=== PATIENT | male | born 1980 | race Caucasian/White ===

== ENCOUNTER 2017-06-06 21:21 | Emergency (ER) | payer MEDICAID ==
[2017-06-07] MEDS ORDERED: Acyclovir* 200 MG CAP PO ONE (00:47)
--- NOTE | 2017-06-07 00:51 | ED ---
Skin Complaint - HPI Summary HPI Summary: 37F presents with back pain for 6 days and rash for a day and a half. burning time pain where rash came. on left side back is rash. He did have chicken pox when he was younger. He denies any drainge from the rash. He denies any fevers. the rash has spread to his chest. He states the area feels swollen. He denies any new products or medications. He has never had this before. The rash and pain are located mid back. He denies any loss of bowel or bladder or saddle anaesthesia. - History of Current Complaint Chief Complaint: EDBackInjuryPain Time Seen by Provider: 06/07/17 00:23 Stated Complaint: BACK PAIN,RASH Pain Intensity: 8 - Allergy/Home Medications Allergies/Adverse Reactions: Allergies Allergy/AdvReac Type Severity Reaction Status Date / Time No Known Allergies Allergy Verified 03/06/16 17:16 PMH/Surg Hx/FS Hx/Imm Hx Endocrine/Hematology History: Denies: Hx Diabetes, Hx Thyroid Disease Cardiovascular History: Reports: Other Cardiovascular Problems/Disorders - VSD repair as a child Denies: Hx Hypertension Respiratory History: Reports: Hx Asthma Denies: Hx Chronic Obstructive Pulmonary Disease (COPD) GI History: Denies: Hx Ulcer - Surgical History Surgery Procedure, Year, and Place: bone spur removed from left ankle years ago , wisdom teeth Infectious Disease History: No Infectious Disease History: Denies: Hx Clostridium Difficile, Hx Hepatitis, Hx Human Immunodeficiency Virus (HIV), Hx of Known/Suspected MRSA, Hx Shingles, Hx Tuberculosis, Hx Known/ Suspected VRE, Hx Known/Suspected VRSA, History Other Infectious Disease, Traveled Outside the [place] in Last 30 Days - Family History Known Family History: Positive: Unknown Negative: Cardiac Disease, Hypertension, Diabetes - Social History Alcohol Use: Occasionally Substance Use Type: Reports: None Substance Use Comment - Amount & Last Used: occasional marijuana Smoking Status (MU): Current Every Day Smoker Type: Cigars Amount Used/How Often: 2-3 /DAY Length of Time of Smoking/Using Tobacco: 12 YEARS Have You Smoked in the Last Year: Yes Review of Systems Negative: Fever Negative: Chest Pain Negative: Shortness Of Breath Positive: Myalgia - back pain Positive: Rash All Other Systems Reviewed And Are Negative: Yes Physical Exam Triage Information Reviewed: Yes Vital Signs On Initial Exam: Initial Vitals Temp Pulse Resp Pulse Ox 98 F 78 18 98 06/06/17 21:30 06/06/17 21:30 06/06/17 21:30 06/06/17 21:30 Vital Signs Reviewed: Yes Appearance: Positive: Well-Appearing Skin: Positive: Other - vescicular red rash across dermatome on left to chest Head/Face: Positive: Normal Head/Face Inspection Eyes: Positive: Normal, Conjunctiva Clear ENT: Positive: Normal ENT inspection, Pharynx normal, TMs normal Respiratory/Lung Sounds: Positive: Clear to Auscultation, Breath Sounds Present Cardiovascular: Positive: Normal, RRR Musculoskeletal: Positive: Strength/ROM Intact - back, Other - tender over rash , edema present over rash, neg SLR Diagnostics - Vital Signs Vital Signs Temp Pulse Resp BP Pulse Ox 06/06/17 21:32 98 F 68 18 148/68 100 06/06/17 21:30 98 F 78 18 98 - Laboratory Lab Statement: Any lab studies that have been ordered have been reviewed, and results considered in the medical decision making process. Course/Dx - Course Course Of Treatment: 37F presents wtih back pain for 6 days and rash for a day and a half. burning time pain where rash came. on left side back is rash. He did have chicken pox when he was younger. He denies any drainge from the rash. He denies any fevers. the rash has spread to his chest. He states the area feels swollen. He denies any new products or medications. He has never had this before. across left deramtome on back is vesciular red rash consistent with shingles. will treat with valtrex and gabapentin for pain. patient understands and agrees with plan. - Differential Diagnoses - Skin Complaint Differential Diagnoses: Cellulitis, Contact Dermatitis, Varicella Zoster - Diagnoses Provider Diagnoses: Shingles Discharge - Discharge Plan Condition: Good Disposition: HOME Prescriptions: Gabapentin CAP(*) [Neurontin 100 mg CAP(*)] 100 mg PO TID PRN #12 cap PRN Reason: Pain ValACYclovir (*) [Valtrex 1 GM(*)] 1 gm PO TID #21 tab Patient Education Materials: Shingles (ED) Forms: *Work Release Referrals: [facility] [Outside] Additional Instructions: Take Valtrex three times a day for 7 days Take gabapentin up to three times a day for nerve pain Establish care with primary Return to ED if develop any new or worsening symptoms
[2017-06-07 03:13] VITALS: BP 131/58
== END 2017-06-07 01:03 | disposition home or self-care (01) ==
LOC: ED 21:21
DX: B02.9 Zoster without complications (principal); M54.9 Dorsalgia, unspecified; R21 Rash and other nonspecific skin eruption; F17.210 Nicotine dependence, cigarettes, uncomplicated
CPT/HCPCS: 99282; A9270-GY

== ENCOUNTER 2018-10-16 18:18 | Emergency (ER) | payer OTHER ==
[2018-10-16] MEDS ORDERED: Albuterol/Ipratropium NEB.SOL* Albuterol 2.5 MG/Ipratropium 0.5 MG 3 ML ONE (18:26)
[2018-10-16] MEDS ORDERED: Albuterol/Ipratropium NEB.SOL* Albuterol 2.5 MG/Ipratropium 0.5 MG 3 ML INH ONE (18:27)
--- NOTE | 2018-10-16 18:39 | ED ---
Respiratory - HPI Summary HPI Summary: The pt is a 38 y/o male with a PMHx of asthma presenting to [facility] c/o asthma exacerbation characterized by chest tightness and wheezing [employer]. He last used his inhaler today morning. He denies any recent illness such as colds. He was last hospitalized for the same sx in childhood. Home Medications Medication Instructions Recorded Confirmed Type Albuterol/Ipratropium INH(NF) 2 puff INH Q6H PRN 09/28/13 05/25/15 History [Combivent Inhaler(NF)] Naproxen Sodium [Aleve] 2 tab PO PRN 03/31/15 05/25/15 History Cyclobenzaprine TAB* [Flexeril 10 mg PO TID PRN #12 tab 03/06/16 Rx TAB*] Cephalexin CAP* [Keflex CAP*] 500 mg PO QID #40 cap 09/09/16 Rx Gabapentin CAP(*) [Neurontin 100 100 mg PO TID PRN #12 cap 06/07/17 Rx mg CAP(*)] ValACYclovir (*) [Valtrex 1 GM(*)] 1 gm PO TID #21 tab 06/07/17 Rx - History of Current Complaint Chief Complaint: EDRespiratoryDistress Stated Complaint: SOB Time Seen by Provider: 10/16/18 18:24 Hx Obtained From: Patient Onset/Duration: Sudden Onset, Still Present Timing: Constant Current Severity: None Pain Intensity: 0 Character: Wheezing Aggravating Factor(s): Nothing Alleviating Factor(s): Nothing Associated Signs and Symptoms: Wheezing, Dyspnea Related History: Similar Episode/Dx as - In childhood - Allergy/Home Medications Allergies/Adverse Reactions: Allergies Allergy/AdvReac Type Severity Reaction Status Date / Time No Known Allergies Allergy Verified 03/06/16 17:16 PMH/Surg Hx/FS Hx/Imm Hx Previously Healthy: No Endocrine/Hematology History: Denies: Hx Diabetes, Hx Thyroid Disease Cardiovascular History: Reports: Other Cardiovascular Problems/Disorders - VSD repair as a child Denies: Hx Hypertension Respiratory History: Reports: Hx Asthma Denies: Hx Chronic Obstructive Pulmonary Disease (COPD) GI History: Denies: Hx Ulcer Sensory History: Denies: Hx Deafness - Cancer History Cancer Type, Location and Year: None reported - Surgical History Surgery Procedure, Year, and Place: bone spur removed from left ankle years ago , wisdom teeth Infectious Disease History: No Infectious Disease History: Denies: Hx Clostridium Difficile, Hx Hepatitis, Hx Human Immunodeficiency Virus (HIV), Hx of Known/Suspected MRSA, Hx Shingles, Hx Tuberculosis, Hx Known/ Suspected VRE, Hx Known/Suspected VRSA, History Other Infectious Disease, Traveled Outside the [place] in Last 30 Days - Family History Known Family History: Negative: Cardiac Disease, Hypertension, Diabetes - Social History Occupation: Employed Full-time Lives: Alone Alcohol Use: Occasionally Substance Use Type: Reports: None Substance Use Comment - Amount & Last Used: occasional marijuana Smoking Status (MU): Current Every Day Smoker Type: Cigars Amount Used/How Often: 2-3 /DAY Length of Time of Smoking/Using Tobacco: 12 YEARS Have You Smoked in the Last Year: Yes Review of Systems Negative: Fever Respiratory: Other - Positive:Chest tightness, dyspnea, wheezing All Other Systems Reviewed And Are Negative: Yes Physical Exam - Summary Physical Exam Summary: Appearance: The patient is well-nourished in no acute respiratory distress and in no acute pain. Skin: The skin is warm and dry and skin color reflects adequate perfusion. HEENT: The head is normocephalic and atraumatic. The pupils are equal and reactive. The conjunctivae are clear and without drainage. Nares are patent and without drainage. Mouth reveals moist mucous membranes and the throat is without erythema and exudate. The external ears are intact. The ear canals are patent and without drainage. The tympanic membranes are intact. Neck: The neck is supple with full range of motion and non-tender. There are no carotid bruits. There is no neck vein distension. Respiratory: Chest is non-tender. Anterior expiratory wheeze present. No posterior expiratory wheeze. The pt is tachypnic. No retractions or accessory muscle use. Cardiovascular: Heart is regular rate and rhythm. There is no murmur or rub auscultated. There is no peripheral edema and pulses are symmetrical and equal. Abdomen: The abdomen is soft and non-tender. There are normal bowel sounds heard in all four quadrants and there is no organomegaly palpated. Musculoskeletal: There is no back tenderness noted. Extremities are non-tender with full range of motion. There is good capillary refill. There is no peripheral edema or calf tenderness elicited. Neurological: Patient is alert and oriented to person, place and time. The patient has symmetrical motor strength in all four extremities. Cranial nerves are grossly intact. Deep tendon reflexes are symmetrical and equal in all four extremities. Psychiatric: The patient has an appropriate affect and does not exhibit any anxiety or depression. Triage Information Reviewed: Yes Vital Signs On Initial Exam: Initial Vitals Temp Pulse Resp BP Pulse Ox 97.9 F 111 22 128/93 97 10/16/18 18:22 10/16/18 18:22 10/16/18 18:22 10/16/18 18:22 10/16/18 18:22 Vital Signs Reviewed: Yes Diagnostics - Vital Signs Vital Signs Temp Pulse Resp BP Pulse Ox 10/16/18 18:32 106 103 10/16/18 18:22 97.9 F 111 22 128/93 97 - Laboratory Lab Statement: Any lab studies that have been ordered have been reviewed, and results considered in the medical decision making process. Re-Evaluation - Re-Evaluation First Eval Re-Evaluation Time: 20:03 Change: Improved Disposition - Course Course Of Treatment: Mr. Hoang presented to the emergency department stating that he has been having asthma exacerbation and run out of his inhaler. He was nontoxic in appearance with stable vital signs and a DuoNeb made him feel completely improved. We dispensed an inhaler for him and he requested steroids. I sent a prescription for Medrol Dosepak. - Diagnoses Provider Diagnoses: Asthma exacerbation Discharge - Sign-Out/Discharge Documenting (check all that apply): Patient Departure - DC - Discharge Plan Condition: Stable Disposition: HOME Prescriptions: methylPREDNISolone [Medrol Dosepak 4 MG*] 4 mg PO .SEE MAZIN INSTRUCTION #1 tab Patient Education Materials: Asthma (ED) Referrals: [facility] [Outside] Additional Instructions: Return to ED for any new or worsening symptoms - Billing Disposition and Condition Condition: STABLE Disposition: Home - Attestation Statements Document Initiated by Scribe: Yes Documenting Scribe: Jeanette Swartz Provider For Whom Amy is Documenting (Include Credential): Dr. Pavan Bolivar MD Scribe Attestation: Jeanette Arriaga , scribed for Dr. Pavan Bolivar MD on 10/16/18 at 214. Scribe Documentation Reviewed: Yes Provider Attestation: The documentation as recorded by the scribe, Jeanette Chepkemoi accurately reflects the service I personally performed and the decisions made by me, Dr. Pavan Bolivar MD Status of Scribe Document: Viewed
[2018-10-16] MEDS ORDERED: Albuterol HFA INHALER* 8 gm MDI INH ONE (20:05)
[2018-10-16 20:56] VITALS: BP 111/65
== END 2018-10-16 20:55 | disposition home or self-care (01) ==
LOC: ED 18:18
DX: J45.901 Unspecified asthma with (acute) exacerbation (principal); F17.290 Nicotine dependence, other tobacco product, uncomplicated
CPT/HCPCS: 99282; A9270-GY